=== PATIENT | male | born 1965 | race Two or more races ===

== ENCOUNTER 2021-04-01 18:22 | Emergency (ER) | payer MEDICAID ==
[~2021-04-01] VITALS: Ht 177.8 cm; Wt 87.9 kg
[2021-04-01 18:26] VITALS: BP 132/90
--- NOTE | 2021-04-01 19:19 | NUR ---
DC EDUCATION PROVIDED TO PT WHO DEMONSTRATES UNDERSTANDING. PT AMBUALTED STEADILY TO DC WITH RN.
== END 2021-04-01 19:21 | disposition home or self-care (01) ==
LOC: ED 18:25
DX: R21 Rash and other nonspecific skin eruption (principal); L97.909 Non-pressure chronic ulcer of unspecified part of unspecified lower leg with unspecified severity
CPT/HCPCS: 99283